=== PATIENT | male | born 1975 | race African-American/Black ===

== ENCOUNTER 2017-10-04 15:44 | Emergency (ER) | payer SELFPAY ==
[~2017-10-04] VITALS: Ht 175.3 cm; Wt 86.0 kg
[2017-10-04 15:51] VITALS: BP 118/75
== END 2017-10-04 17:31 | disposition home or self-care (01) ==
LOC: ER 15:44
DX: J06.9 Acute upper respiratory infection, unspecified (principal); F17.200 Nicotine dependence, unspecified, uncomplicated; F12.10 Cannabis abuse, uncomplicated
CPT/HCPCS: 71045; 99283